=== PATIENT | male | born 1930 | race Caucasian/White ===

== ENCOUNTER 2016-06-20 16:39 | Inpatient (IN) | payer MEDICARE, BC ==
--- NOTE | ~2016-06-20 | CN ---
Consultation Report [address] [address] [place]. [address] NAME: MYLES LEVY : 32 STATUS : ADM IN PAT#: [id number] AGE: 86 ADM/REG DATE : 06/21/16 MR#: [id number] REPORT SERV DATE: 06/22/16 DICTATED BY: MATTHEW DELGADO III DATE: 06/22/16 REPORT STATUS : Draft TRANSCRIBED BY: MODL DATE: 06/22/16 DATE OF CONSULTATION: REQUESTING PHYSICIAN: Noah Frye M.D., F.A.CAloC. REASON: Scrotal edema. HISTORY OF PRESENT ILLNESS: Mr. Levy is an 86-year-old, white male, who came into the hospital with chest pain. He gives a history of several weeks ago having some sort of scrotal trauma. He is on anticoagulation. He develops scrotal edema and ecchymoses and I am asked to see him for this. PAST MEDICAL HISTORY: Angina, coronary artery disease, hypertension, hypercholesterolemia, peripheral vascular disease, sleep apnea, and gastroesophageal reflux disease. PAST SURGICAL HISTORY: Appendectomy, hernia repair, coronary stents, tonsillectomy, adenoidectomy, and circumcision. HOME MEDICATIONS: Reviewed. ALLERGIES: HE IS ALLERGIC TO LINCOMYCIN. PHYSICAL EXAMINATION: GENERAL: The patient is awake and alert. He does have scrotal edema and ecchymoses. There is no fluctuance. IMAGING: A scrotal ultrasound was consistent with bilateral epididymo-orchitis. ASSESSMENT: 1. Scrotal edema. 2. Scrotal ecchymoses. 3. Epididymitis. PLAN: We will treat him with antibiotics and follow up as an outpatient. PH/MODL Matthew Delgado III, M.D. / [id number] CC: Consultation Report [address] [place]. [address] NAME: MYLES LEVY : 31 STATUS : ADM IN PAT#: [id number] AGE: 86 ADM/REG DATE : 06/21/16 MR#: [id number] REPORT SERV DATE: 06/22/16 DICTATED BY: MATTHEW DELGADO III DATE: 06/22/16 REPORT STATUS : Draft TRANSCRIBED BY: MINDI DATE: 06/22/16 Noah Frye M.D., F.A.C.C. Alberta Vergara M.D.
--- NOTE | ~2016-06-20 | OP ---
Record Of Operation [facility] [address] [place]. [address] NAME: MYLES MARSH : 32 STATUS : ADM Cory PAT#: [id number] AGE: 86 ADM/REG DATE : 06/20/16 MR#: [id number] REPORT SERV DATE: 06/21/16 DICTATED BY: NOAH FRYE DATE: 06/21/16 REPORT STATUS : Draft TRANSCRIBED BY: MODL DATE: 06/21/16 DATE OF PROCEDURE: 06/21/2016 CARDIAC CATHETERIZATION REPORT INDICATION FOR THIS PROCEDURE: Acute coronary syndrome. PROCEDURE IN DETAIL: The patient was prepped and draped in usual sterile fashion. Moderate IV sedation was administered. Adequate anesthesia was obtained over the right femoral vessels using lidocaine infiltration. Using Seldinger technique, a 6 FL5 coronary catheter was advanced to the left coronary ostium. Left coronary artery injections were performed in multiple views. Left coronary catheter was then exchanged for 6 FR4 coronary catheter which was advanced to the right coronary ostium. Right coronary artery injections were then performed in the ESTONIAN and BUSTAMANTE views. Right coronary catheter was then exchanged for a 6- Danish pigtail catheter, which was advanced into the left ventricular cavity. Pressures were measured across the aortic valve and left ventricular angiogram was obtained in the BUSTAMANTE projection. Pigtail catheter was removed over a guidewire and the sheath left in place in anticipation of subsequent angioplasty. RESULTS: 1. Pressures: Left ventricular end-diastolic pressure was 16 mmHg and no gradient was present across the aortic valve. 2. Left ventricular angiogram: Left ventricle contracted normally with estimated ejection fraction of 60%. 3. Coronary arteriograms: Left main coronary artery is normal. Left anterior descending coronary artery has a patent stented segment in its midportion and a patent stented segment in the proximal portion of the first diagonal branch. There was a 60% lesion distal to the stented segment and the diagonal branch. Left circumflex coronary artery is free of significant disease. The right coronary artery is a dominant vessel and has a patent stented segment proximally and an 80% to 90% lesion proximal to the origin of the posterior descending branch. IMPRESSION: 1. Multi-vessel coronary disease. 2. Patent stents in LAD diagonal branch and proximal to mid right coronary artery. 3. High-grade stenosis of right coronary artery just proximal to the origin of the posterior descending branch. PLAN: Proceed with stenting of right coronary artery. SS/MINDI Noah Frye M.D., F.A.C.C. Record Of Operation [address] [address] NAME: MYLES MARSH : 31 STATUS : ADM Cory PAT#: [id number] AGE: 86 ADM/REG DATE : 06/20/16 MR#: [id number] REPORT SERV DATE: 06/21/16 DICTATED BY: NOAH FRYE DATE: 06/21/16 REPORT STATUS : Draft TRANSCRIBED BY: MINDI DATE: 06/21/16 / [id number] CC: Noah Frye M.D., F.A.C.C. Ann Tello MD
--- NOTE | ~2016-06-20 | OP ---
Record Of Operation [facility] [address] [place]. [address] NAME: MYLES MARSH : 32 STATUS : ADM Cory PAT#: [id number] AGE: 86 ADM/REG DATE : 06/20/16 MR#: [id number] REPORT SERV DATE: 06/21/16 DICTATED BY: NOAH FRYE DATE: 06/21/16 REPORT STATUS : Draft TRANSCRIBED BY: MODL DATE: 06/21/16 DATE OF PROCEDURE: 06/21/2016 PTCA REPORT INDICATION FOR THIS PROCEDURE: Acute coronary syndrome. PROCEDURE: The patient has already been prepped and draped and a 6-Malay sheath was in place in the right femoral artery from the preceding cardiac catheterization. Moderate IV sedation was administered. A 6-Malay AL1 coronary guiding catheter with side holes was advanced to the right coronary ostium. Right coronary artery injections confirmed the presence of an 80% to 90% stenosis just proximal to the origin of the right posterior descending branch. A 0.014 Graphix guidewire was passed into the distal posterior descending branch. The vessels dilated with a 2.5/12 Emerge balloon at up to 15 atmospheres pressure for 15 seconds in duration. A 2.5/12 Synergy stent was then deployed across the lesion at up to 15 atmospheres pressure for 15 seconds in duration. Intracoronary nitroglycerin was administered. Following removal of balloon and guidewire, final right coronary artery injection showed 0% residual stenosis at the site of stent implantation with DC grade 3 distal flow. Guiding catheter was removed and sheath left in place. TOTAL CONTRAST USED: 175 mL. TOTAL RADIATION EXPOSURE: 731 mGy. ESTIMATED BLOOD LOSS: No significant blood loss occurred. IMPRESSION: Successful PTCA and placement of drug-eluting stent in right coronary artery just proximal to origin of right posterior descending branch. ROHIT/MINDI Naoh Frye M.D., Ino / [id number] CC: Noah Frye M.D., Ino Tello MD
--- NOTE | ~2016-06-20 | HP ---
History And Physical [id number] [place]. [address] NAME: MYLES MARSH : 32 STATUS : ADM Cory PAT#: [id number] AGE: 86 ADM/REG DATE : 06/20/16 MR#: [id number] REPORT SERV DATE: 06/20/16 DICTATED BY: IVIS BROCK DATE: 06/20/16 REPORT STATUS : Draft TRANSCRIBED BY: MODL DATE: 06/20/16 DATE OF ADMISSION: 06/20/2016 HISTORY OF PRESENT ILLNESS: The patient is a pleasant 86-year-old white male with a history of coronary artery disease who presented to the emergency department after an episode of severe substernal chest pain today. He reports having fallen about a week ago and states he injured his scrotum and since had some swelling in that area. An ultrasound was done and he saw a urologist a few days ago who recommended watchful waiting at that time. However since that time, he complains that his scrotum has swollen significantly more. This morning he states that he "jumped up and started having a lot of pain in my chest." It was sharp initially and then became more of a dull substernal discomfort. He took some Mylanta and Nexium and the pain eventually resolved after about 30 minutes. The patient reports some intermittent chest pain recently when he was walking. He has been treating it with Mylanta and states that this seems to relieve the pain. However, discomfort seems to be more exertional than diet related. Currently, the patient is resting in bed, in no acute distress. His EKG showed no acute injury pattern, but his troponin was borderline elevated at 0.13. PAST MEDICAL HISTORY: Significant for coronary artery disease, status post previous stenting as well as essential hypertension, hyperlipidemia, and gastroesophageal reflux disease. The patient's last cardiac catheterization was done by Dr. Frye on 04/14/2015. This showed patent pre-existing stent in the mid LAD, diagonal branch, and proximal to mid RCA. There was a high-grade ostial stenosis in the ramus intermedius branch which was stented at that time. The patient's left ventricular ejection fraction was normal at 65%. FAMILY HISTORY: Positive for coronary artery disease in his brother. SOCIAL HISTORY: The patient is a nonsmoker. REVIEW OF SYSTEMS: The patient denies nausea, vomiting, diarrhea, or dysuria. He denies any recent cough, wheeze, sputum production, fever, or chills. He does complain of the above-mentioned scrotal edema. No significant dyspnea on exertion. PHYSICAL EXAMINATION: VITAL SIGNS: Blood pressure is 116/79, heart rate 77 and regular, respirations 18 and unlabored. The patient is afebrile. GENERAL APPEARANCE: The patient is a well-developed, well-nourished white male, in no acute distress. HEENT: Unremarkable. NECK: Shows no jugular venous distention with good carotid upstroke. CHEST: Clear to auscultation bilaterally. There is no tenderness to palpation of the chest wall. CARDIOVASCULAR: The PMI is lateral to the midclavicular line. S1 is normal. S2 is narrowly split. No gallop is present. ABDOMEN: Soft and nontender with normal bowel sounds. History And Physical [address] [address] NAME: MYLES MARSH : 32 STATUS : ADM Cory PAT#: [id number] AGE: 86 ADM/REG DATE : 06/20/16 MR#: [id number] REPORT SERV DATE: 06/20/16 DICTATED BY: IVIS BROCK DATE: 06/20/16 REPORT STATUS : Draft TRANSCRIBED BY: MINDI DATE: 06/20/16 EXTREMITIES: Show no cyanosis or clubbing. There is trace ankle edema noted bilaterally. SKIN: Warm and dry with no pallor or icterus. The patient's scrotum is notably swollen. NEURO/PSYCH: The patient is alert and oriented x3 with appropriate affect. LABORATORY AND DIAGNOSTIC DATA: EKG shows sinus rhythm with PVCs and nonspecific ST-T changes. There is borderline voltage for LVH. Chest x-ray showed no acute cardiopulmonary process. CBC showed a white count of 7.0, hemoglobin 10.2, hematocrit 30.6, platelets 283. Chemistry panel shows a sodium of 140, potassium 4.3, BUN 16, creatinine 0.81, magnesium 2.3. The troponin was slightly elevated at 0.13. BNP level was slightly elevated at 226.8. Ultrasound of the testicles showed probable epididymo-orchitis. IMPRESSION: 1. Acute coronary syndrome. 2. Scrotal edema with epididymo-orchitis secondary to recent trauma. 3. Coronary artery disease. 4. Essential hypertension. 5. Hyperlipidemia. 6. Gastroesophageal reflux disease. PLAN: 1. We will place the patient on a heparin drip and admit for observation with serial cardiac enzymes. 2. The ER physician has already consulted Urology to evaluate the patient's scrotal swelling. 3. Further testing to be determined based on clinical course. The patient is rather anxious to go home, but I explained that it would be advisable for him to stay to rule out ischemia. He is favorable to doing a nuclear stress test and indicates that he would prefer that over cardiac cath at this time. EBB/MODL Ivis Brock NP / [id number] CC: Noah Frye M.D., F.A.C.C. Alberta Vergara M.D.
[2016-06-20 13:10] LABS: BASOPHILS 0.1 %; BASOPHILS ABSOLUTE 0.01 10/3/uL (0.0-0.16); EOSINOPHILS 1.1 %; EOSINOPHILS ABSOLUTE 0.08 10/3/uL (0.0-0.53); ER CBC TAT 0 Hrs 03 Mins; HEMOGLOBIN 10.2 g/dL (13.6-17.8); IMMATURE GRANULOCYTES 0.4 %; IMMATURE GRANULOCYTES ABSOLUTE 0.03 10/3/uL (0.0-0.11); LYMPHOCYTES 13.4 %; LYMPHOCYTES ABSOLUTE 0.94 10/3/uL (0.67-4.30); MEAN CORPUS HGB CONC 33.3 g/dL (32.0-36.0); MEAN CORPUSCULAR HEMOGLOB 31.4 pg (26.0-34.0); MEAN CORPUSCULAR VOLUME 94.2 fL (80-100); MEAN PLATELET VOLUME 9.1 fL (9.2-13.0); MONOCYTES 8.7 %; MONOCYTES ABSOLUTE 0.61 10/3/uL (0.21-1.20); NEUTROPHILS 76.3 %; NEUTROPHILS ABSOLUTE 5.32 10/3/uL (2.02-8.40); RBC DISTRIBUTION WIDTH 12.5 % (12.0-16.0); RED CELL COUNT 3.25 10/6/uL (4.7-6.1)
[2016-06-20 13:11] LABS: HEMATOCRIT 30.6 % (40.0-51.0); MANUAL DIFF NO %; PLATELET COUNT 283 10/3/uL (150-400)
[2016-06-20 13:18] LABS: INTERNATIONAL NORMAL RATI 1.2 UNITS (-); PARTIAL THROMBO TIME 30.1 SEC (22.5-37.2); PROTIME (NOT ORD) 15.5 SEC (12.0-14.5)
[2016-06-20 13:28] LABS: BUN (BLOOD UREA NITROGEN) 16 MG/DL (6-23); CALCIUM, SERUM 8.5 MG/DL (8.5-10.4); CHEST PAIN PROFILE TAT 0 Hrs 21 Mins; CHLORIDE, SERUM 105 MMOL/L (96-112); CO2 (CARBON DIOXIDE) 29 MMOL/L (24-34); CREATININE 0.81 MG/DL (0.70-1.30); GFR AFRICAN AMERICAN 94 ML/MIN (>=60); GFR NON AFRICAN AMERICAN 81 ML/MIN (>=60); GLUCOSE, SERUM 85 MG/DL (60-99); POTASSIUM, SERUM 4.3 MMOL/L (3.5-5.3); SODIUM, SERUM 140 MMOL/L (135-148); TROPONIN I 0.13 NG/ML (<0.05)
[~2016-06-20 16:39] MED LIST: ALTA2.5 PO; ASA5GR PO; ASAB PO; ASABAYER PO; BRILINTA90 MG; CARASPUDL PO; CENTRUM TAB1 TAB PO; GAVISCON6 PO; LOP25 PO; MAALOX PO; NEXIUM20 M1 PO; NORV5 PO; PLAVIX PO; PREV15 PO; PRILO PO; PRILOSEC40 MG PO; RANITIDINE300 MG PO; SUCR PO; SYSTANE OPH; TOPXL50 PO; ZANTAC 150 PO; ZANTAC 75 PO; ZANTAC150 MG PO; ZOCOR20 PO; ZOCOR40 PO; [UNRECOGNIZED DRUG - REMARK] TOP
[2016-06-20] MEDS ORDERED: ASAB PO (16:45)
[2016-06-20] MEDS ORDERED: ZANTAC150 MG PO (16:45)
[2016-06-20] MEDS ORDERED: ZOCOR20 PO (16:45)
[2016-06-20] MEDS ORDERED: NEXIUM20 M1 PO (16:45)
[2016-06-20] MEDS ORDERED: LOP25 PO (16:45)
[2016-06-20] MEDS ORDERED: VITAMIN B12 TABLET PO (16:46)
[2016-06-20] MEDS ORDERED: MYLANTA LIQUID PO (16:46)
[2016-06-20] MEDS ORDERED: MULTIVITAMI1 PO (16:46)
[2016-06-20] MEDS ORDERED: SYSTANE OPH (16:47)
[2016-06-21 01:37] LABS: BASOPHILS 0.3 %; BASOPHILS ABSOLUTE 0.02 10/3/uL (0.0-0.16); HEMATOCRIT 29.8 % (40.0-51.0); HEMOGLOBIN 9.9 g/dL (13.6-17.8); IMMATURE GRANULOCYTES 0.4 %; IMMATURE GRANULOCYTES ABSOLUTE 0.03 10/3/uL (0.0-0.11); LYMPHOCYTES 22.5 %; LYMPHOCYTES ABSOLUTE 1.52 10/3/uL (0.67-4.30); MEAN CORPUS HGB CONC 33.2 g/dL (32.0-36.0); MEAN CORPUSCULAR HEMOGLOB 31.2 pg (26.0-34.0); MEAN PLATELET VOLUME 9.2 fL (9.2-13.0); MONOCYTES 11.6 %; MONOCYTES ABSOLUTE 0.78 10/3/uL (0.21-1.20); NEUTROPHILS 62.2 %; PLATELET COUNT 277 10/3/uL (150-400); RBC DISTRIBUTION WIDTH 12.5 % (12.0-16.0); RED CELL COUNT 3.17 10/6/uL (4.7-6.1); WHITE BLOOD CELLS 6.8 10/3/uL (4.5-10.5)
[2016-06-21 01:40] LABS: MANUAL DIFF NO %
[2016-06-21 02:18] LABS: CHOL/HDL RATIO(NOT ORDER) 2.7 (0-5)
[2016-06-21 16:49] LABS: CK-MB 6.8 NG/ML
[2016-06-21 16:50] LABS: CKMB INDEX (NOT ORD) 1.6
[2016-06-22 05:59] LABS: CK-MB 14.1 NG/ML
[2016-06-22 06:00] LABS: CKMB INDEX (NOT ORD) 3.2; TROPONIN I 4.09 NG/ML (<0.05)
[2016-06-22] MEDS ORDERED: PLAVIX PO (11:48)
[2016-06-22] MEDS ORDERED: ALTA2.5 PO (11:49)
[2016-06-22] MEDS ORDERED: LEVAQUIN750 MG PO (13:39)
== END 2016-06-22 14:15 | disposition home or self-care (01) | DRG 247 ==
LOC: ER 16:39 → CDU1 17:01 → SSU1 06-21 15:34
PROVIDERS: Emergency Medicine; Internal Medicine Interventional Cardiology; Nurse Practitioner Family
PROC: 027034Z Dilation of Coronary Artery, One Artery with Drug-eluting Intraluminal Device, Percutaneous Approach (ICD-10-PCS; principal; 2016-06-21)
PROC: 4A023N7 Measurement of Cardiac Sampling and Pressure, Left Heart, Percutaneous Approach (ICD-10-PCS; 2016-06-21)
PROC: B2151ZZ Fluoroscopy of Left Heart using Low Osmolar Contrast (ICD-10-PCS; 2016-06-21)
PROC: B2111ZZ Fluoroscopy of Multiple Coronary Arteries using Low Osmolar Contrast (ICD-10-PCS; 2016-06-21)
DX: I25.110 Atherosclerotic heart disease of native coronary artery with unstable angina pectoris (principal); I73.9 Peripheral vascular disease, unspecified; I10 Essential (primary) hypertension; E78.5 Hyperlipidemia, unspecified; K21.9 Gastro-esophageal reflux disease without esophagitis; N50.89 Other specified disorders of the male genital organs; N45.3 Epididymo-orchitis; Z88.1 Allergy status to other antibiotic agents; Z95.5 Presence of coronary angioplasty implant and graft; Z82.49 Family history of ischemic heart disease and other diseases of the circulatory system
CPT/HCPCS: 71010; 76870; 80048; 80061; 82550; 82553; 83735; 83880; 84460; 84484; 85025; 85610; 85730; 93005; 93458; 99152; 99153; 99285; A9270-GY; C1725; C1769; C1874; C1887; C9600; J0583; J1200; J2250; J3010; Q9967

== ENCOUNTER 2016-09-11 21:58 | Emergency (ER) | payer MEDICARE, BC ==
[~2016-09-11 21:58] MED LIST changes: +LEVAQUIN750 MG PO; +MULTIVITAMI1 PO; +MYLANTA LIQUID PO; +VITAMIN B12 TABLET PO
[2016-09-11 23:44] LABS: BASOPHILS 0.5 %; BASOPHILS ABSOLUTE 0.03 10/3/uL (0.0-0.16); EOSINOPHILS 2.6 %; EOSINOPHILS ABSOLUTE 0.15 10/3/uL (0.0-0.53); HEMATOCRIT 35.9 % (40.0-51.0); IMMATURE GRANULOCYTES 0.2 %; IMMATURE GRANULOCYTES ABSOLUTE 0.01 10/3/uL (0.0-0.11); LYMPHOCYTES 26.6 %; LYMPHOCYTES ABSOLUTE 1.54 10/3/uL (0.67-4.30); MANUAL DIFF NO %; MEAN CORPUS HGB CONC 33.4 g/dL (32.0-36.0); MEAN CORPUSCULAR VOLUME 92.8 fL (80-100); MEAN PLATELET VOLUME 9.3 fL (9.2-13.0); MONOCYTES 11.9 %; MONOCYTES ABSOLUTE 0.69 10/3/uL (0.21-1.20); NEUTROPHILS 58.2 %; NEUTROPHILS ABSOLUTE 3.36 10/3/uL (2.02-8.40); PLATELET COUNT 181 10/3/uL (150-400); RBC DISTRIBUTION WIDTH 13.3 % (12.0-16.0); RED CELL COUNT 3.87 10/6/uL (4.7-6.1); WHITE BLOOD CELLS 5.8 10/3/uL (4.5-10.5)
[2016-09-11 23:51] LABS: INTERNATIONAL NORMAL RATI 1.2 UNITS (-); PARTIAL THROMBO TIME 29.3 SEC (22.5-37.2); PROTIME (NOT ORD) 15.4 SEC (12.0-14.5)
[2016-09-12 00:02] LABS: BUN (BLOOD UREA NITROGEN) 18 MG/DL (6-23); CALCIUM, SERUM 8.7 MG/DL (8.5-10.4); CHEST PAIN PROFILE TAT 0 Hrs 22 Mins; CHLORIDE, SERUM 105 MMOL/L (96-112); CO2 (CARBON DIOXIDE) 30 MMOL/L (24-34); CREATININE 0.72 MG/DL (0.70-1.30); GFR AFRICAN AMERICAN 99 ML/MIN (>=60); GFR NON AFRICAN AMERICAN 85 ML/MIN (>=60); GLUCOSE, SERUM 94 MG/DL (60-99); POTASSIUM, SERUM 3.9 MMOL/L (3.5-5.3); SODIUM, SERUM 139 MMOL/L (135-148); TROPONIN I 0.03 NG/ML (<0.05)
== END 2016-09-12 01:06 | disposition home or self-care (01) ==
LOC: ER 21:58
PROVIDERS: Hospitalist
DX: R10.13 Epigastric pain (principal); K21.9 Gastro-esophageal reflux disease without esophagitis; Z88.1 Allergy status to other antibiotic agents; Z95.5 Presence of coronary angioplasty implant and graft; Z79.82 Long term (current) use of aspirin; Z79.899 Other long term (current) drug therapy
CPT/HCPCS: 71010; 80048; 83735; 84484; 85025; 85610; 85730; 99284; A9270-GY

== ENCOUNTER 2016-12-14 23:18 | Emergency (ER) | payer MEDICARE, BC | END 2016-12-15 03:40 | disposition home or self-care (01) | LOC: ER 23:18 | DX: K59.00 Constipation, unspecified (principal); S80.11XA Contusion of right lower leg, initial encounter; I10 Essential (primary) hypertension; I25.10 Atherosclerotic heart disease of native coronary artery without angina pectoris; K21.9 Gastro-esophageal reflux disease without esophagitis; Z95.5 Presence of coronary angioplasty implant and graft; Z88.1 Allergy status to other antibiotic agents; Z79.899 Other long term (current) drug therapy; Z79.82 Long term (current) use of aspirin; X58.XXXA Exposure to other specified factors, initial encounter | CPT/HCPCS: 80053; 81001; 83690; 85025; 99283 ==